=== PATIENT | male | born 1990 | race Caucasian/White ===

== ENCOUNTER → 2017-02-21 | Outpatient (CLI) | payer OTHER ==
[~2017-02-21] MED LIST: CONRAY-43 43% 50ML VIAL (Q9960) As Ordered ONE; LIDOCAINE 1% MDV 20ML VIAL As Ordered ONE; TRIAMCINOLONE ACETONIDE SUSP 40 MG/ML VIAL (J3301) As Ordered ONE
--- NOTE | 2017-02-21 15:55 | REP ---
LEFT HIP INJECTION: The procedure was performed under the direct supervision of Dr. Garcia. The benefits and risks including, but not limited to pain, infection, bleeding, and anaphylaxis were explained to the patient and informed consent was obtained. The left femoral neck was localized using fluoroscopic guidance. The skin was prepped and draped in a sterile fashion. 1% lidocaine was used as a local anesthetic. Using fluoroscopic guidance a 22 gauge spinal needle was inserted and advanced to the femoral neck. 0.5 mL of Conray 43 was injected to verify placement. 10 mL of a solution containing 9 mL of 1% lidocaine and 1 mL of Kenalog 40 mg was injected. The needle was then removed. The patient tolerated the procedure well and there were no immediate complications. 1 second of fluoroscopy time was utilized for this procedure. Reviewed by ADOLFO Mcmillan 02/21/2017 04:24 PEdited and Signed by Adi Garcia MD 02/22/2017 01:14 P
== END ==
LOC: M RADPRO 10:25
DX: M25.552 Pain in left hip (principal); M76.892 Other specified enthesopathies of left lower limb, excluding foot
CPT/HCPCS: 20610; 77002; J3301; Q9960

== ENCOUNTER → 2017-02-27 | Outpatient (CLI) | payer OTHER ==
[~2017-02-27] MED LIST changes: -CONRAY-43 43% 50ML VIAL (Q9960) As Ordered ONE; +GASTROGRAFIN SOLUTION 30ML (Q9963) As Ordered ONE; +ISOVUE-370 76% 100ML VIAL (Q9967) As Ordered ONE; -LIDOCAINE 1% MDV 20ML VIAL As Ordered ONE; -TRIAMCINOLONE ACETONIDE SUSP 40 MG/ML VIAL (J3301) As Ordered ONE
--- NOTE | 2017-02-27 13:22 | REP ---
Clinical: Nausea and vomiting with equivocal findings on prior outside examination. Technique: Axial contrast enhanced images from the lung bases to the pubic symphysis using oral and 100 ml Isovue 370 intravenous contrast material with coronal and sagittal re-formations. Findings: Lung bases are clear. A 1.5 cm soft tissue nodule in the left anterior chest wall likely represents gynecomastia. Liver, spleen, pancreas, gallbladder, bilateral adrenal glands and kidneys are normal. The enteric system is without obstruction or acute inflammatory process. A normal terminal ileum and appendix are identified in the right lower quadrant and there is no evidence for acute appendicitis. Pelvis demonstrates normal bladder and age appropriate prostate/seminal vesicles. Trace free fluid in the deep pelvis is nonspecific and of uncertain etiology. No pelvic, intraperitoneal or retroperitoneal adenopathy. No mass lesion. Vasculature normal. Surrounding musculoskeletal structures are intact. Impression: 1. A minuscule amount of free fluid in the pelvis is nonspecific. No further acute intra-abdominal or pelvic pathology is appreciated. Normal appendix and terminal ileum identified in the right lower quadrant. 2. Suspected gynecomastia with 1.5 cm soft tissue nodule in the left anterior chest. Signed by Sushant Blandon MD 02/27/2017 01:13 P
== END ==
LOC: M RAD 10:53
PROVIDERS: ATTEND Physician Assistant
DX: R10.9 Unspecified abdominal pain (principal)

== ENCOUNTER → 2017-07-19 | Outpatient (CLI) | payer OTHER ==
[~2017-07-19] MED LIST changes: +CONRAY-43 43% 50ML VIAL (Q9960) As Ordered ONE; -GASTROGRAFIN SOLUTION 30ML (Q9963) As Ordered ONE; -ISOVUE-370 76% 100ML VIAL (Q9967) As Ordered ONE
--- NOTE | 2017-07-19 10:29 | REP ---
MR ARTHROGRAM RIGHT HIP: TECHNIQUE: Coronal T1, STIR through the pelvis, T2 fat sat, right hip all three planes, axial oblique proton density fat sat right hip. The visualized osseous structures demonstrate normal marrow signal with no bone marrow edema or occult fracture. There is no evidence of avascular necrosis. There is no evidence of a labral tear. There is no paralabral cyst. There is no joint effusion. Surrounding soft tissue structures are unremarkable. There is no evidence of greater trochanteric tendinobursitis. The visualized intrapelvic structures appear unremarkable. IMPRESSION: Negative MR arthrogram right hip. Signed by Adi Garcia MD 07/19/2017 04:41 P
--- NOTE | 2017-07-19 12:16 | REP ---
RIGHT HIP ARTHROGRAM: The procedure was performed by ADOLFO Wood, under the direct supervision of Dr. Garcia. The procedure along with its risks, benefits and complications were discussed with the patient prior to the procedure. Informed consent was obtained both verbally and written. The right femoral neck was localized using fluoroscopic guidance. The skin was prepped and draped in the usual sterile fashion. A procedural "time out" was performed to ensure the correct patient, site and procedure were being performed. 1% lidocaine was used for local anesthesia. Using fluoroscopic guidance, a 22-gauge spinal needle was inserted and advanced to the femoral neck. 0.5 mL of Conray 60 was injected to verify placement. 11 mL of a solution containing 20 mL of sterile saline and 0.15 mL of ProHance was injected into the joint space. The needle was removed and the patient was taken to MRI for post procedural imaging. The patient tolerated the procedure well and had no immediate complications. Fluoroscopy time was 5 seconds. Reviewed by ADOLFO Vásquez 07/19/2017 03:50 PEdited and Signed by Adi Garcia MD 07/19/2017 04:39 P
== END ==
LOC: M RADPRO 06:57
PROVIDERS: ATTEND Family Medicine
DX: M25.551 Pain in right hip (principal)
CPT/HCPCS: 27093; 73723; 77002; A9576; Q9960